=== PATIENT | male | born 1985 | race African-American/Black ===

== ENCOUNTER 2018-05-24 22:01 | Emergency (ER) | payer BC, OTHER ==
--- NOTE | 2018-05-24 23:46 | EDPHYS ---
Physician Documentation [facility] Name: Nazario Arriola Age: 33 yrs Sex: Male : 1985 Arrival Date: 05/24/2018 Time: 22:08 Bed 23 Private MD: ED Physician Walter Squires HPI: 05/24 23:37 This 33 yrs old Black Male presents to ER via Ambulatory with complaints of Neck Pain, cp >24Hrs Old. 23:37 The patient or guardian complains of decreased range of motion, pain, that is acute, cp tenderness, stiffness. The symptoms are located on the right lateral neck. Onset: The symptoms/episode began/occurred 3 day(s) ago, and became worse this morning. Context: The neck injury/problem resulted from from unknown cause, started upon awakening 3 days ago. Associated signs and symptoms: Pertinent negatives: headache, numbness, tingling, weakness. The pain does not radiate. Modifying factors: the symptoms are aggravated by turning head to right. Historical: - Allergies: 22:25 No Known Allergies; aj1 - Home Meds: 22:25 None [Active]; aj1 - PMHx: 22:25 None; aj1 - PSHx: 22:25 None; aj1 - Immunization history:: Last tetanus immunization: unknown. - Social history:: Smoking status: Patient uses tobacco products, vap. - Ebola Screening: : Patient negative for fever greater than or equal to 101.5 degrees Fahrenheit, and additional compatible Ebola Virus Disease symptoms Patient denies exposure to infectious person Patient denies travel to an Ebola-affected area in the 21 days before illness onset. ROS: 23:40 Eyes: Negative for injury, pain, redness, and discharge. cp 23:40 Constitutional: Negative for body aches, chills, fever, poor PO intake. 23:40 ENT: Negative for drainage from ear(s), ear pain, sore throat, difficulty swallowing, difficulty handling secretions, hoarseness. 23:40 Neck: Positive for pain with movement, pain at rest, stiffness, tenderness, of the right lateral neck. 23:40 Cardiovascular: Negative for chest pain, edema, palpitations. 23:40 Respiratory: Negative for cough, shortness of breath, wheezing. 23:40 Abdomen/GI: Negative for abdominal pain, nausea, vomiting, and diarrhea. 23:40 Skin: Negative for cellulitis, rash. 23:40 Neuro: Negative for altered mental status, headache, numbness, weakness. 23:40 All other systems are negative. Exam: 23:41 Head/Face: Normocephalic, atraumatic. cp 23:41 Constitutional: The patient appears in no acute distress, alert, awake, non-toxic, well developed, well nourished. 23:41 Eyes: Periorbital structures: appear normal, Conjunctiva: normal, no exudate, no injection, Lids and lashes: appear normal, bilaterally. 23:41 ENT: External ear(s): are unremarkable, Ear canal(s): are normal, clear, TM's: dullness, bilaterally, Nose: is normal, Mouth: Lips: moist, Oral mucosa: moist, Posterior pharynx: is normal, airway is patent, no erythema, no exudate, Voice: is normal. 23:41 Neck: External neck: tenderness, that is moderate, right posterior lateral neck, ROM/movement: pain, that is moderate, with rotation to the right, limited range of motion, that is moderate, when rotating to the right, Meningeal signs: are not present, nuchal rigidity, is not appreciated, Lymph nodes: no appreciated lymphadenopathy. 23:41 Chest/axilla: Inspection: normal, Palpation: is normal, no crepitus, no tenderness. 23:41 Cardiovascular: Rate: normal, Rhythm: regular. 23:41 Respiratory: the patient does not display signs of respiratory distress, Respirations: normal, no use of accessory muscles, no retractions, no splinting, no tachypnea, Breath sounds: are clear throughout, no decreased breath sounds, no stridor, no wheezing. 23:41 Abdomen/GI: Exam negative for discomfort, distension, guarding, Inspection: abdomen appears normal. 23:41 Back: pain, is absent, ROM is normal. 23:41 Skin: cellulitis, is not appreciated, no rash present. Vital Signs: 22:25 BP 146 / 98; Pulse 67; Resp 20; Temp 98.8(O); Pulse Ox 99% on R/A; Weight 186.88 kg aj1 (R); Height 6 ft. 3 in. (190.50 cm) (R); Pain 8/10; 05/25 00:04 BP 145 / 109; Pulse 69; Resp 16; Pulse Ox 97% ; tl3 05/24 22:25 Body Mass Index 51.50 (186.88 kg, 190.50 cm) aj1 MDM: 05/24 23:34 Patient medically screened. cp 23:44 Data reviewed: vital signs, nurses notes, and as a result, I will discharge patient. cp Administered Medications: 23:51 Drug: TORadol 60 mg Route: IM; Site: right vastus lateralis; tl3 05/25 00:10 Follow up: Response: No adverse reaction tl3 Disposition: 06:55 Co-signature as Attending Physician, Walter Squires MD I agree with the assessment and [facility] plan of care. Disposition: 05/24/18 23:45 Discharged to Home. Impression: Torticollis. - Condition is Stable. - Discharge Instructions: Acute Torticollis, Adult, Neck Exercises, Form - Excuse from Work, School, or Physical Activity. - Prescriptions for Baclofen 10 mg Oral Tablet - take 1 tablet by ORAL route 3 times per day no driving while taking medication; 20 tablet. Diclofenac Sodium 75 mg Oral Tablet, Delayed Release (E.C.) - take 1 tablet by ORAL route 2 times per day; 20 tablet. - Medication Reconciliation Form, Thank You Letter, Antibiotic Education, Prescription Opioid Use, Work release form form. - Follow up: Private Physician; When: 5 - 6 days; Reason: if symptoms continue. - Problem is new. - Symptoms have improved. Signatures: La Walker RN RN aj1 Walter Squires MD MD cha Page, Corey PA PA cp Anita Armendariz RN RN tl3 Corrections: (The following items were deleted from the chart) 00:20 05/24 23:45 05/24/2018 23:45 Discharged to Home. Impression: Torticollis. Condition is tl3 Stable. Forms are Medication Reconciliation Form, Thank You Letter, Antibiotic Education, Prescription Opioid Use. Follow up: Private Physician; When: 5 - 6 days; Reason: if symptoms continue. Problem is new. Symptoms have improved. cp
--- NOTE | 2018-05-24 23:46 | ER ---
Nurse's Notes [facility] Name: Nazario Arriola Age: 33 yrs Sex: Male : 1985 Arrival Date: 05/24/2018 Time: 22:08 Bed 23 Private MD: Diagnosis: Torticollis Presentation: 05/24 22:23 Presenting complaint: Patient states: that he thinks he slept bad and now has pain to aj1 right side of neck. Transition of care: patient was not received from another setting of care. Onset of symptoms was May 21, 2018. Risk Assessment: Do you want to hurt yourself or someone else? Patient reports no desire to harm self or others. Initial Sepsis Screen: Does the patient meet any 2 criteria? No. Patient's initial sepsis screen is negative. Does the patient have a suspected source of infection? No. Patient's initial sepsis screen is negative. Care prior to arrival: Medication(s) given: Motrin, 200 mg, last at 1930. 22:23 Method Of Arrival: Ambulatory [facility] 22:23 Acuity: TABITHA 4 aj1 Triage Assessment: 22:27 General: Appears uncomfortable, obese, Behavior is calm, cooperative, appropriate for aj1 age. Pain: Complains of pain in neck Pain currently is 8 out of 10 on a pain scale. Quality of pain is described as aching, Pain began gradually, Is continuous, Aggravated by repositioning. EENT: No deficits noted. Neuro: Level of Consciousness is awake, alert, obeys commands, Oriented to person, place, time, situation. Cardiovascular: No deficits noted. Respiratory: No deficits noted. GI: No deficits noted. : No deficits noted. Derm: Skin is pink, warm \T\ dry. Musculoskeletal: Circulation, motion, and sensation intact. Capillary refill < 3 seconds, Range of motion: intact in all extremities, Reports pain in neck. Historical: - Allergies: 22:25 No Known Allergies; aj1 - Home Meds: 22:25 None [Active]; aj1 - PMHx: 22:25 None; aj1 - PSHx: 22:25 None; aj1 - Immunization history:: Last tetanus immunization: unknown. - Social history:: Smoking status: Patient uses tobacco products, vap. - Ebola Screening: : Patient negative for fever greater than or equal to 101.5 degrees Fahrenheit, and additional compatible Ebola Virus Disease symptoms Patient denies exposure to infectious person Patient denies travel to an Ebola-affected area in the 21 days before illness onset. Screenin:54 Abuse screen: Denies threats or abuse. Nutritional screening: No deficits noted. tl3 Tuberculosis screening: No symptoms or risk factors identified. Fall Risk None identified. Assessment: 22:54 General: Appears uncomfortable, well groomed, well developed, well nourished, Behavior tl3 is calm, cooperative, appropriate for age. Pain: Complains of pain in neck-right side Pain currently is 9 out of 10 on a pain scale. Neuro: Level of Consciousness is awake, alert, obeys commands, Oriented to person, place, time, situation, Appropriate for age. Cardiovascular: Heart tones S1 S2 present Patient's skin is warm and dry. Respiratory: Airway Respiratory effort is even, unlabored, Respiratory pattern is regular, symmetrical, Breath sounds are clear bilaterally. GI: No signs and/or symptoms were reported involving the gastrointestinal system. : No signs and/or symptoms were reported regarding the genitourinary system. EENT: No signs and/or symptoms were reported regarding the EENT system. Derm: No signs and/or symptoms reported regarding the dermatologic system. Musculoskeletal: No signs and/or symptoms reported regarding the musculoskeletal system. 05/25 00:04 Reassessment: Patient appears in no apparent distress at this time. No changes from tl3 previously documented assessment. Patient and/or family updated on plan of care and expected duration. Pain level reassessed. Patient is alert, oriented x 3, equal unlabored respirations, skin warm/dry/pink. Vital Signs: 05/24 22:25 BP 146 / 98; Pulse 67; Resp 20; Temp 98.8(O); Pulse Ox 99% on R/A; Weight 186.88 kg aj1 (R); Height 6 ft. 3 in. (190.50 cm) (R); Pain 8/10; 05/25 00:04 BP 145 / 109; Pulse 69; Resp 16; Pulse Ox 97% ; tl3 05/24 22:25 Body Mass Index 51.50 (186.88 kg, 190.50 cm) aj1 ED Course: 05/24 22:08 Patient arrived in ED. es 22:25 Triage completed. aj1 22:27 Arm band placed on Patient placed in waiting room. aj1 22:51 Anita Armendariz, RN is Primary Nurse. tl3 22:54 Patient has correct armband on for positive identification. tl3 22:54 No provider procedures requiring assistance completed. Patient did not have IV access tl3 during this emergency room visit. 23:34 Walter Adam PA is PHCP. cp 23:34 Walter Squires MD is Attending Physician. cp Administered Medications: 23:51 Drug: TORadol 60 mg Route: IM; Site: right vastus lateralis; tl3 05/25 00:10 Follow up: Response: No adverse reaction tl3 Outcome: 05/24 23:45 Discharge ordered by . cp 05/25 00:20 Patient left the ED. tl3 Signatures: La Walker RN RN aj1 Karli Rangel Corey, PA PA cp Anita Armendariz, RN RN tl3
[2018-05-24] MEDS ORDERED: KETOROLAC 30 MG/ML INJ ONE (23:48)
== END 2018-05-25 00:20 | disposition home or self-care (01) ==
LOC: ER 22:01
DX: M43.6 Torticollis (principal); F17.290 Nicotine dependence, other tobacco product, uncomplicated
CPT/HCPCS: 96372; 99282